=== PATIENT | female | born 1970 | race Caucasian/White ===

== ENCOUNTER → 2020-10-14 | Outpatient (CLI) | payer BC ==
[~2020-10-14] MED LIST: CELEXA40 MG PO; COLACE100 MG PO; NORCO 325 MG-51 TAB PO; PRENATAL VITAMI1 TA5 PO; SENOKOT S 50 MG1 TAB PO; SLOW FE160 MG PO
== END ==
LOC: MC.RAD 07:30
DX: Z12.31 Encounter for screening mammogram for malignant neoplasm of breast (principal)